=== PATIENT | female | born 1930 | race Caucasian/White ===

== ENCOUNTER 2016-06-12 | Outpatient (CLI) | payer MEDICARE, OTHER | END 2016-06-12 11:14 | disposition critical access hospital (66) | CPT/HCPCS: A0425; A0427 ==

== ENCOUNTER 2016-06-12 11:24 | Emergency (ER) | payer MEDICARE, OTHER ==
[2016-06-12] MEDS ORDERED: SODIUM CHLORIDE 0.9% 1,000 ML IV ONE (11:41)
== END 2016-06-12 13:20 | disposition home or self-care (01) ==
DX: E86.0 Dehydration (principal); I10 Essential (primary) hypertension

== ENCOUNTER 2016-06-24 15:31 | Outpatient (CLI) | payer MEDICARE, OTHER | END 2016-06-24 15:32 | disposition home or self-care (01) | DX: R06.2 Wheezing (principal); R05 Cough; J06.9 Acute upper respiratory infection, unspecified ==

== ENCOUNTER 2016-11-04 16:17 | Outpatient (CLI) | payer MEDICARE, OTHER ==
[2016-11-04 17:53] LABS: BASOPHILS % (AUTO) 0.1 %; EOSINOPHILS % (AUTO) 0.1 %; HCT - HEMATOCRIT 25.5 % (37.0-47.0); HGB - HEMOGLOBIN 9.3 g/dL (12.0-16.0); LYMPHOCYTES % (AUTO) 29.9 %; MEAN CORPUSCULAR HEMOGLOBIN 32.3 pg (27.0-31.0); MEAN CORPUSCULAR HGB CONC 36.4 g/dL (32.0-36.0); MEAN CORPUSCULAR VOLUME 88.8 fL (81.0-99.0); MONOCYTES % (AUTO) 11.8 %; NEUTROPHILS % (AUTO) 58.1 %; RED BLOOD COUNT 2.87 10^6/uL (4.20-5.40); RED CELL DISTRIBUTION WIDTH 14.5 % (12.0-15.0); UNCORRECTED WHITE BLOOD COUNT 2.8 x10^3/uL; WHITE BLOOD COUNT 2.8 x10^3/uL (4.8-10.8)
[2016-11-04 18:14] LABS: ALBUMIN/GLOBULIN RATIO 1.6 (1.0-2.2); BILIRUBIN,TOTAL 0.7 mg/dL (0.2-1.0); BUN - BLOOD UREA NITROGEN 15 mg/dL (6-20); CALCIUM 8.8 mg/dL (8.5-10.3); CARBON DIOXIDE - CO2 22 mmol/L (21-32); CHLORIDE 96 mmol/L (101-111); CREATININE 1.1 mg/dL (0.4-1.0); GFR - MDRD 47 (>89); GLUCOSE 90 mg/dL (70-100); POTASSIUM 4.3 mmol/L (3.5-5.0); SODIUM 127 mmol/L (135-145)
[2016-11-04 21:04] LABS: BAND NEUTROPHILS % (MANUAL) 2 %; LYMPHOCYTES % (MANUAL) 24 %; NEUTROPHILS % (MANUAL) 66 %; NP AUTO DIFFERENTIAL? YES; NP MAN DIFFERENTIAL? NO; PLATELET ESTIMATE, MANUAL NORMAL (130-450,000) (NORMAL); PLATELET MORPHOLOGY NORMAL APPEARANCE (NORMAL); TOTAL CELLS COUNTED 100
== END 2016-11-04 16:18 | disposition home or self-care (01) ==
LOC: LAB.R 16:17
PROVIDERS: ATTEND Internal Medicine
DX: E03.9 Hypothyroidism, unspecified (principal); R53.83 Other fatigue
CPT/HCPCS: 80053; 84443; 85025; 85651; 86140

== ENCOUNTER 2016-11-05 11:30 | Outpatient (CLI) | payer MEDICARE, OTHER ==
[2016-11-05 12:14] LABS: IMMATURE RETIC FRACTION 0.41; RED BLOOD COUNT 2.86 10^6/uL (4.20-5.40)
[2016-11-05 12:58] LABS: FERRITIN 103.9 ng/mL (11.0-306.8)
== END 2016-11-05 11:31 | disposition home or self-care (01) ==
LOC: LAB.R 11:30
PROVIDERS: ATTEND Internal Medicine
DX: D64.9 Anemia, unspecified (principal)
CPT/HCPCS: 82607; 82728; 83010; 85044; 86880

== ENCOUNTER 2016-11-09 09:31 | Emergency (ER) | payer MEDICARE, OTHER ==
[2016-11-09] MEDS ORDERED: SODIUM CHLORIDE 0.9% 1,000 ML IV ONE (10:12)
--- NOTE | 2016-11-09 10:14 | ED Physician Documentation ---
History of Present Illness - Stated complaint Stated Complaint: WEAKNESS - Chief complaint Chief Complaint: General - History obtained from History obtained from: Patient - History of Present Illness Timing: Other (several months) - Additonal information Additional information: 86-year-old female with a prior history of breast cancer long-term survivor has developed increasing fatigue and weakness with exertional dyspnea over the past several months. She has had similar symptoms previously with dehydration and her physician Dr. Barragan has been following her blood counts they have apparently been dropping and he has asked her to come to the emergency department today for evaluation. He indicates there is evidence of ongoing hemolysis. The patient herself has had increased weakness and fatigue over the past week and has stopped playing bridge 2 days ago because even that was exhausting. She has not been able to walk down to her mailbox for more than 1 month. Review of Systems Constitutional: denies: Fever Eyes: denies: Decreased vision Ears: denies: Ear pain Nose: denies: Congestion Throat: denies: Sore throat Cardiac: denies: Chest pain / pressure, Palpitations Respiratory: reports: Dyspnea. denies: Cough GI: denies: Abdominal Pain, Nausea, Vomiting, Constipation, Diarrhea : denies: Dysuria, Frequency Skin: reports: Rash (Chronic urticaria 2 years) Musculoskeletal: denies: Neck pain, Back pain, Extremity pain, Extremity swelling Neurologic: reports: Generalized weakness. 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 - Present Medications Home Medications: Ambulatory Orders Medication Instructions Recorded Confirmed Levothyroxine Sodium [Levoxyl] 137 mcg PO QDAC 06/12/16 06/12/16 Losartan [Cozaar] 25 mg PO DAILY 06/12/16 06/12/16 - Allergies Allergies/Adverse Reactions: Allergies Allergy/AdvReac Type Severity Reaction Status Date / Time Penicillins Allergy Unknown Verified 06/12/16 11:28 - Social History Does the pt smoke?: No Smoking Status: Never smoker PD ED PE NORMAL - Vitals Vital signs reviewed: Yes (Tachycardic) - General General: No acute distress, Well developed/nourished - HEENT HEENT: Atraumatic, PERRL - Neck Neck: Supple, no meningeal sign - Cardiac Cardiac: No murmur, Other (Tachycardia to 100) - Respiratory Respiratory: No respiratory distress, Clear bilaterally - Abdomen Abdomen: Soft, Non tender - Back Back: No CVA TTP, No spinal TTP - Derm Derm: Normal color, Warm and dry, Other (There is mild urticaria over the forearms. ) - Extremities Extremities: No deformity, No edema - Neuro Neuro: Alert and oriented X 3, No motor deficit, No sensory deficit, Normal speech - Psych Psych: Normal mood, Normal affect Results - Vitals Vitals: Vital Signs - 24 hr 11/09/16 11/09/16 09:33 10:56 Temperature 36.6 C Heart Rate 103 H 69 Respiratory 16 12 Rate Blood Pressure 109/64 124/96 H O2 Saturation 98 100 Oxygen O2 Source Room air - Labs Labs: Laboratory Tests 11/09/16 11/09/16 11/09/16 09:40 09:44 09:44 WBC 3.1 L RBC 3.15 L Hgb 10.1 L Hct 27.9 L MCV 88.5 MCH 32.2 H MCHC 36.3 H RDW 13.9 Plt Count 213 MPV 7.4 L Neut # 1.7 Lymph # 1.0 L Mercer # 0.4 Eos # 0.0 Baso # 0.0 Absolute Nucleated RBC 0.00 Nucleated RBCs 0.0 ESR 78 H Sodium 130 L Potassium 4.1 Chloride 98 L Carbon Dioxide 25 Anion Gap 7.0 BUN 14 Creatinine 1.2 H Estimated GFR (MDRD) 43 L Glucose 89 Calcium 8.8 Total Bilirubin 1.0 AST 18 ALT 11 Alkaline Phosphatase 57 Troponin I Total Protein 7.1 Albumin 4.2 Globulin 2.9 Albumin/Globulin Ratio 1.4 Lipase 23 11/09/16 09:44 WBC RBC Hgb Hct MCV MCH MCHC RDW Plt Count MPV Neut # Lymph # Mercer # Eos # Baso # Absolute Nucleated RBC Nucleated RBCs ESR Sodium Potassium Chloride Carbon Dioxide Anion Gap BUN Creatinine Estimated GFR (MDRD) Glucose Calcium Total Bilirubin AST ALT Alkaline Phosphatase Troponin I < 0.04 Total Protein Albumin Globulin Albumin/Globulin Ratio Lipase Procedures - IVC sono (time) 1010 Bedside IVC sono: IVC measures (cm) (0.90), IVC collapsed c insp (cm) (complete) , Dehydration PD MEDICAL DECISION MAKING - ED course Complexity details: reviewed results, re-evaluated patient, considered differential, d/w patient ED course: 86-year-old female with a history of anemia and evidence of hemolysis as return to the emergency department and on evaluation today her blood counts are up from where they were previously. She was discovered to be dehydrated on interrogation of the inferior vena cava and intravenous saline is begun. Departure - Departure Disposition: 01 Home, Self Care Clinical Impression: Dehydration Anemia Qualifiers: Anemia type: unspecified type Qualified Code(s): D64.9 - Anemia, unspecified Instructions: ED Dehydration, ED Anemia Type Not Specified Follow-Up: Leon Barragan MD [Primary Care Provider] - Discharge Date/Time: 11/09/16 11:51
[2016-11-09 10:17] LABS: BASOPHILS % (AUTO) 0.1 %; EOSINOPHILS % (AUTO) 0.1 %; HCT - HEMATOCRIT 27.9 % (37.0-47.0); HGB - HEMOGLOBIN 10.1 g/dL (12.0-16.0); LYMPHOCYTES % (AUTO) 32.8 %; MEAN CORPUSCULAR HEMOGLOBIN 32.2 pg (27.0-31.0); MEAN CORPUSCULAR HGB CONC 36.3 g/dL (32.0-36.0); MEAN CORPUSCULAR VOLUME 88.5 fL (81.0-99.0); MEAN PLATELET VOLUME 7.4 fL (7.9-10.8); MONOCYTES # (AUTO) 0.4 10^3/uL (0.0-1.0); MONOCYTES % (AUTO) 13.2 %; NEUTROPHILS # (AUTO) 1.7 10^3/uL (1.5-6.6); NEUTROPHILS % (AUTO) 53.8 %; RED BLOOD COUNT 3.15 10^6/uL (4.20-5.40); RED CELL DISTRIBUTION WIDTH 13.9 % (12.0-15.0); UNCORRECTED WHITE BLOOD COUNT 3.1 x10^3/uL; WHITE BLOOD COUNT 3.1 x10^3/uL (4.8-10.8)
[2016-11-09 10:30] LABS: ALBUMIN/GLOBULIN RATIO 1.4 (1.0-2.2); CALCIUM 8.8 mg/dL (8.5-10.3); CREATININE 1.2 mg/dL (0.4-1.0); POTASSIUM 4.1 mmol/L (3.5-5.0); TOTAL PROTEIN 7.1 g/dL (6.7-8.2)
[2016-11-09 10:57] VITALS: BP 124/96
== END 2016-11-09 11:51 | disposition home or self-care (01) ==
LOC: ED 09:31
DX: E86.0 Dehydration (principal); D64.9 Anemia, unspecified; I10 Essential (primary) hypertension; E03.9 Hypothyroidism, unspecified; Z85.3 Personal history of malignant neoplasm of breast
CPT/HCPCS: 36415; 80053; 83690; 84484; 85025; 85651; 96360; 99283; 99284

== ENCOUNTER 2017-01-07 17:03 | Outpatient (CLI) | payer MEDICARE, OTHER ==
--- NOTE | 2017-01-08 09:02 | XRAY Report ---
THREE-VIEW LEFT WRIST: 01/07/2017 CLINICAL INDICATION: Fall, pain. FINDINGS: AP, lateral, oblique views of the left wrist demonstrate osteoarthritis, worst in the firs t carpometacarpal joint. There is no evidence of acute fracture. No radiopaque foreign body is seen in the soft tissues. IMPRESSION: OSTEOARTHRITIS. JOB #: [id number] EXT JOB #:[id number]
== END 2017-01-07 17:04 | disposition home or self-care (01) ==
LOC: DI 17:03
PROVIDERS: ATTEND Internal Medicine
DX: M25.532 Pain in left wrist (principal); M19.032 Primary osteoarthritis, left wrist

== ENCOUNTER 2019-08-28 19:15 | Outpatient (CLI) | payer MEDICARE, OTHER | END 2019-08-28 19:16 | disposition critical access hospital (66) | LOC: EMS 19:15 | PROVIDERS: ATTEND Surgery | DX: R55 Syncope and collapse (principal); R05 Cough | CPT/HCPCS: A0425; A0427 ==

== ENCOUNTER 2019-08-28 19:35 | Emergency (ER) | payer MEDICARE, OTHER ==
--- NOTE | 2019-08-28 19:45 | ED Physician Documentation ---
PD HPI SYNCOPE - Stated complaint Stated Complaint: Syncope, cough - History obtained from History obtained from: Patient (This is a very pleasant 89-year-old woman with history of hypothyroidism and anemia. Otherwise pretty healthy. She has a history of recurrent weak spells. She had more than average today and nearly passed out twice. She also notes that she had 8 or drank anything now. She denies any injury or pain. She has had a few days of nonproductive cough. Denies chest pain or trouble breathing.) Review of Systems Ten Systems: 10 systems reviewed and negative Constitutional: reports: Fatigue. 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 - Present Medications Home Medications: Ambulatory Orders Medication Instructions Recorded Confirmed Levothyroxine Sodium [Levoxyl] 137 mcg PO QDAC 06/12/16 02/02/19 Losartan [Cozaar] 25 mg PO DAILY 06/12/16 02/02/19 Cyanocobalamin [Vitamin B-12] 1,000 mcg IM ONCE 12/10/16 02/02/19 - Allergies Allergies/Adverse Reactions: Allergies Allergy/AdvReac Type Severity Reaction Status Date / Time Penicillins Allergy Unknown Verified 08/28/19 19:41 - Social History Does the pt smoke?: No Smoking Status: Never smoker PD ED PE NORMAL - Vitals Vital signs reviewed: Yes - General General: Alert and oriented X 3, No acute distress - HEENT HEENT: PERRL, EOMI - Neck Neck: Supple, no meningeal sign, No bony TTP - Cardiac Cardiac: RRR, No murmur - Respiratory Respiratory: No respiratory distress, Clear bilaterally - Abdomen Abdomen: Non tender - Extremities Extremities: No edema, No calf tenderness / cord - Neuro Neuro: Alert and oriented X 3, Normal speech Results - Vitals Vitals: Vital Signs - 24 hr 08/28/19 08/28/19 08/28/19 19:41 19:44 20:38 Temperature 36.7 C Heart Rate 88 88 79 Respiratory 20 18 18 Rate Blood Pressure 135/61 H 135/61 H 150/68 H O2 Saturation 100 96 100 Oxygen O2 Source Room air - EKG (time done) 1942 Rate: Rate (enter#) (87) Rhythm: NSR Wilburn: Normal Intervals: Normal MD QRS: Normal Ischemia: Normal ST segments Computer interpretation: Agree with computer - Labs Labs: Laboratory Tests 08/28/19 08/28/19 08/28/19 19:53 19:53 19:53 WBC 2.7 L RBC 3.10 L Hgb 9.4 L Hct 27.4 L MCV 88.4 MCH 30.3 MCHC 34.3 RDW 14.0 Plt Count 142 MPV 10.5 Neut # (Auto) 1.4 L Lymph # (Auto) 0.7 L [place] # (Auto) 0.6 Eos # (Auto) 0.0 Baso # (Auto) 0.0 Absolute Nucleated RBC 0.00 Nucleated RBC % 0.0 Manual Slide Review Indicated Platelet Estimate NORMAL (130-450,000) Platelet Morphology NORMAL APPEARANCE RBC Morph Micro Appear NORMAL APPEARANCE Sodium 131 L Potassium 4.5 Chloride 103 Carbon Dioxide 21 Anion Gap 7.0 BUN 22 H Creatinine 1.4 H Estimated GFR (MDRD) 35 L Glucose 107 H Lactic Acid 1.1 Calcium 7.9 L Total Bilirubin 0.8 AST 17 ALT 12 Alkaline Phosphatase 60 Troponin I High Sens Total Protein 6.7 Albumin 4.0 Globulin 2.7 Albumin/Globulin Ratio 1.5 Lipase 44 08/28/19 19:53 WBC RBC Hgb Hct MCV MCH MCHC RDW Plt Count MPV Neut # (Auto) Lymph # (Auto) [place] # (Auto) Eos # (Auto) Baso # (Auto) Absolute Nucleated RBC Nucleated RBC % Manual Slide Review Platelet Estimate Platelet Morphology RBC Morph Micro Appear Sodium Potassium Chloride Carbon Dioxide Anion Gap BUN Creatinine Estimated GFR (MDRD) Glucose Lactic Acid Calcium Total Bilirubin AST ALT Alkaline Phosphatase Troponin I High Sens 6.2 Total Protein Albumin Globulin Albumin/Globulin Ratio Lipase PD MEDICAL DECISION MAKING - ED course ED course: This is a very pleasant 89-year-old woman with recurrent syncope. Worse today potentially from lack of oral intake. Her BUN and creatinine are up slightly from her baseline's which correspond to that therapy. The remainder of her work-up was negative. She felt much better after a liter of IV fluids. Her blood counts are basically at her baseline. Chest x-ray single view interpreted contemporaneously by me is normal. Departure - Departure Disposition: 01 Home, Self Care Clinical Impression: Near syncope, Dehydration Condition: Good Record reviewed to determine appropriate education?: Yes Instructions: ED Dehydration Comments: Drink plenty of fluids. Return for new or worsening symptoms. Follow-up with your doctor within the week for recheck.
[2019-08-28] MEDS: SODIUM CHLORIDE 0.9% 1,000 ML IV ONE (19:48)
[2019-08-28 20:03] LABS: HGB - HEMOGLOBIN 9.4 g/dL (12.0-16.0); LYMPHOCYTES # (AUTO) 0.7 10^3/uL (1.5-3.5); LYMPHOCYTES % (AUTO) 25.5 %; MEAN CORPUSCULAR HEMOGLOBIN 30.3 pg (27.0-31.0); MEAN CORPUSCULAR HGB CONC 34.3 g/dL (32.0-36.0); MEAN CORPUSCULAR VOLUME 88.4 fL (81.0-99.0); MEAN PLATELET VOLUME 10.5 fL (7.9-10.8); MONOCYTES # (AUTO) 0.6 10^3/uL (0.0-1.0); MONOCYTES % (AUTO) 22.9 %; NEUTROPHILS # (AUTO) 1.4 10^3/uL (1.5-6.6); NEUTROPHILS % (AUTO) 50.5 %; PLT - PLATELET COUNT 142 10^3/uL (130-450); WHITE BLOOD COUNT 2.7 x10^3/uL (4.8-10.8)
[2019-08-28 20:12] LABS: ALBUMIN/GLOBULIN RATIO 1.5 (1.0-2.2); BILIRUBIN,TOTAL 0.8 mg/dL (0.2-1.0); CALCIUM 7.9 mg/dL (8.5-10.3); CREATININE 1.4 mg/dL (0.4-1.0); TOTAL PROTEIN 6.7 g/dL (6.7-8.2)
[2019-08-28 20:28] LABS: PLATELET ESTIMATE, MANUAL NORMAL (130-450,000) (NORMAL); PLATELET MORPHOLOGY NORMAL APPEARANCE (NORMAL); RBC MORPHOLOGY (MULTIPLE) NORMAL APPEARANCE (NORMAL)
--- NOTE | 2019-08-28 20:29 | XRAY Report ---
Reason: cough Procedure Date: 08/28/2019 Accession Number: [id number] / [id number] Procedure: XR - Chest 1 View X-Ray CPT Code: 02016 Final Report FULL RESULT: EXAM: CHEST RADIOGRAPHY EXAM DATE: 08/28/2019 08:06 PM. CLINICAL HISTORY: Cough. COMPARISON: CHEST 2 VIEW PA/LAT 06/24/2016 4:14 PM. TECHNIQUE: 1 view. FINDINGS: Lungs/Pleura: Lower chin obscures the right apex. No dense consolidation. No large effusion or pneumothorax. No pulmonary edema. Mediastinum: Heart and mediastinal contours are unremarkable. Other: Surgical clips in the right breast. IMPRESSION: No acute radiographic pulmonary abnormalities. RADIA
[2019-08-28 20:39] VITALS: BP 150/68
== END 2019-08-28 21:04 | disposition home or self-care (01) ==
LOC: ED 19:35
DX: R55 Syncope and collapse (principal); E86.0 Dehydration
CPT/HCPCS: 36415; 71045; 80053; 83605; 83690; 84484; 85025; 93005; 96360; 99285

== ENCOUNTER 2019-10-15 14:22 | Outpatient (CLI) | payer MEDICARE, OTHER ==
[2019-10-15 14:41] LABS: HGB - HEMOGLOBIN 9.6 g/dL (12.0-16.0); LYMPHOCYTES % (AUTO) 15.4 %; MEAN CORPUSCULAR HEMOGLOBIN 31.2 pg (27.0-31.0); MEAN CORPUSCULAR HGB CONC 35.2 g/dL (32.0-36.0); MEAN CORPUSCULAR VOLUME 88.6 fL (81.0-99.0); MEAN PLATELET VOLUME 9.6 fL (7.9-10.8); MONOCYTES % (AUTO) 21.4 %; NEUTROPHILS % (AUTO) 62.4 %; PLT - PLATELET COUNT 160 10^3/uL (130-450); RED BLOOD COUNT 3.08 10^6/uL (4.20-5.40); RED CELL DISTRIBUTION WIDTH 14.2 % (12.0-15.0); WHITE BLOOD COUNT 3.7 x10^3/uL (4.8-10.8)
[2019-10-15 14:44] LABS: ABNORMAL LYMPHS % (MANUAL) 0 %; BAND NEUTROPHILS % (MANUAL) 0 %
[2019-10-15 15:02] LABS: LYMPHOCYTES # (MANUAL) 0.8 10^3/uL (1.5-3.5); LYMPHOCYTES % (MANUAL) 21 %; MONOCYTES # (MANUAL) 0.6 10^3/uL (0.0-1.0)
[2019-10-15 15:03] LABS: DIFFERENTIAL COMMENT MANUAL DIFFERENTIAL; PLATELET ESTIMATE, MANUAL NORMAL (130-450,000) (NORMAL); PLATELET MORPHOLOGY NORMAL APPEARANCE (NORMAL); RBC MORPHOLOGY (MULTIPLE) 1+ POIKILOCYTOSIS (NORMAL)
[2019-10-15 15:06] LABS: CALCIUM 8.6 mg/dL (8.5-10.3); CREATININE 1.6 mg/dL (0.4-1.0)
[2019-10-15 15:11] LABS: THYROID STIMULATING HORMONE 1.65 uIU/mL (0.34-5.60)
[2019-10-15 15:14] LABS: FREE T4 (FREE THYROXINE) 0.93 ng/dL (0.58-1.64)
[2019-10-15 15:15] LABS: FREE T3 2.06 pg/mL (2.5-3.9)
[2019-10-15 15:20] LABS: FERRITIN 88.2 ng/mL (11.0-306.8)
[2019-10-15 15:23] LABS: FOLATE 19.19 ng/mL (5.90 - >24.8)
== END 2019-10-15 14:23 | disposition home or self-care (01) ==
LOC: LAB 14:22
PROVIDERS: ATTEND Family Medicine
DX: I95.2 Hypotension due to drugs (principal); I10 Essential (primary) hypertension; D51.0 Vitamin B12 deficiency anemia due to intrinsic factor deficiency
CPT/HCPCS: 36415; 80048; 82607; 82728; 82746; 83540; 84439; 84443; 84466; 84481; 85025

== ENCOUNTER 2019-12-02 14:56 | Outpatient (CLI) | payer MEDICARE, OTHER ==
[2019-12-02 15:12] LABS: EOSINOPHILS % (AUTO) 0.4 %; HGB - HEMOGLOBIN 9.5 g/dL (12.0-16.0); LYMPHOCYTES % (AUTO) 23.3 %; MEAN CORPUSCULAR HEMOGLOBIN 31.7 pg (27.0-31.0); MEAN CORPUSCULAR HGB CONC 35.2 g/dL (32.0-36.0); MEAN PLATELET VOLUME 9.5 fL (7.9-10.8); MONOCYTES % (AUTO) 24.7 %; NEUTROPHILS % (AUTO) 50.3 %; PLT - PLATELET COUNT 144 10^3/uL (130-450); RED CELL DISTRIBUTION WIDTH 14.9 % (12.0-15.0); WHITE BLOOD COUNT 2.3 x10^3/uL (4.8-10.8)
[2019-12-02 15:21] LABS: CALCIUM 8.2 mg/dL (8.5-10.3); CREATININE 1.3 mg/dL (0.4-1.0)
[2019-12-02 15:35] LABS: ABNORMAL LYMPHS % (MANUAL) 0 %
[2019-12-02 15:49] LABS: BAND NEUTROPHILS % (MANUAL) 1 %; LYMPHOCYTES # (MANUAL) 0.5 10^3/uL (1.5-3.5); LYMPHOCYTES % (MANUAL) 21 %; MONOCYTES # (MANUAL) 0.7 10^3/uL (0.0-1.0)
[2019-12-02 15:50] LABS: DIFFERENTIAL COMMENT MANUAL DIFFERENTIAL; PLATELET ESTIMATE, MANUAL NORMAL (130-450,000) (NORMAL); PLATELET MORPHOLOGY NORMAL APPEARANCE (NORMAL); RBC MORPHOLOGY (MULTIPLE) NORMAL APPEARANCE (NORMAL)
== END 2019-12-02 14:57 | disposition home or self-care (01) ==
LOC: LAB 14:56
PROVIDERS: ATTEND Family Medicine
DX: E87.1 Hypo-osmolality and hyponatremia (principal); D50.9 Iron deficiency anemia, unspecified
CPT/HCPCS: 36415; 80048; 85025

== ENCOUNTER 2019-12-15 13:03 | Outpatient (CLI) | payer MEDICARE, OTHER ==
--- NOTE | 2019-12-15 13:26 | CT Report ---
PROCEDURE: HEAD WO INDICATIONS: Memory impairment TECHNIQUE: Noncontrast 4.5 mm thick angled axial sections acquired from the foramen magnum to the vertex. For r adiation dose reduction, the following was used: automated exposure control, adjustment of mA and/or kV according to patient size. COMPARISON: None. FINDINGS: Image quality: Excellent. CSF spaces: Basal cisterns are patent. No extra-axial fluid collections. Ventriculomegaly as a func tion of global cerebral volume loss. Brain: Patchy hypodensity in the cerebral hemispheric white matter reflecting chronic microvascular ischemic change, overall mild. No midline shift. No intracranial masses or hemorrhage. Vega-white m atter interface is normal. Skull and face: Calvarium and visualized facial bones are intact, without suspicious lesions. Sinuses: Visualized sinuses and mastoids are clear. IMPRESSION: No acute intracranial finding. Global cerebral volume loss and chronic microvascular isc hemic change. Reviewed by: Julio Burleson MD on 12/15/2019 1:24 PM PDT Approved by: Julio Burleson MD on 12/15/2019 1:24 PM PDT Station ID: [id number]
== END 2019-12-15 13:04 | disposition home or self-care (01) ==
LOC: DI 13:03
PROVIDERS: ATTEND Family Medicine
DX: R41.3 Other amnesia (principal)
CPT/HCPCS: 70450